=== PATIENT | male | born 1985 | race Caucasian/White ===

== ENCOUNTER → 2018-09-07 | Outpatient (CLI) | payer OTHER ==
[~2018-09-07] MED LIST: 0.9 % SODIUM CHLORIDE 10 ML DISP.SYRIN. ID ONE; CONTRAST GIVEN. MC PRN; GADOTERATE 7.5 MMOL/15ML VIAL. INT ART ONE; IOHEXOL 300 MG/ML 50 ML VIAL. INT ART ONE; LIDOCAINE 1% Multi-Dose 20 ML VIAL. ID ONE
--- NOTE | 2018-09-07 14:11 | KCIC ---
[facility] radiograph of the orbits 09/07/2018 CLINICAL HISTORY: Pre-MRI evaluation. History of metal exposure to the eyes. A [facility] digital radiograph of the skull was obtained. No radiopaque foreign body is seen involving either orbit. A probable 1.6 cm mucous retention cyst is seen within the inferior aspect of the right maxillary sinus. No fracture is seen. IMPRESSION: No radiopaque foreign body is seen involving either orbit. Electronically signed by: Carlos Middleton MD (09/07/2018 2:08 PM) [place] [id number]
--- NOTE | 2018-09-07 15:52 | KCIC ---
MRI arthrogram of the right shoulder HISTORY: Impingement syndrome, pain for 8 years. TECHNIQUE: Routine 4 plane sequences obtained after intra-articular contrast injection. FINDINGS: Acromioclavicular joint is degenerative with small undersurface osteophytes and mass effect. Partial-thickness undersurface tear of the anterior supraspinatus tendon, measures about two thirds deep and 1 cm AP diameter. No through and through full-thickness rupture. No significant subdeltoid bursal contrast accumulation, only trace subdeltoid bursal effusion. No evidence of acute articular cartilage defect. No labral tear or detachment. Biceps tendon is intact. No bone destruction or acute fracture. IMPRESSION: Small partial-thickness undersurface tear of the anterior supraspinatus tendon. No full-thickness rupture. Electronically signed by: Luis Gayle MD (09/07/2018 3:50 PM) [id number]
--- NOTE | 2018-09-07 17:25 | KCIC ---
PROCEDURE: Right shoulder injection using fluoroscopic guidance, prior to MR. HISTORY: Shoulder pain. TECHNIQUE: The procedure was explained to the patient as were potential risks, including among others infection, bleeding or allergic reaction. All questions were answered. Informed written and verbal consent was obtained. The shoulder was prepped and draped in the usual sterile manner. Following administration of local anesthetic, a 22-gauge needle was advanced into the anterior shoulder. Following negative aspiration, 12 cc of a solution of 5cc Omnipaque-300 contrast, 5 cc 1% lidocaine, 10 cc normal saline, and 0.1 cc gadolinium was injected without difficulty. The needle was removed. There was good hemostasis at the injection site. The patient left in stable condition without immediate complication. A single spot image is obtained. FLUOROSCOPY TIME:?18 seconds Electronically signed by: Luis Gayle MD (09/07/2018 5:23 PM) [id number]
== END | disposition home or self-care (01) ==
LOC: KCIC 13:23
PROVIDERS: ATTEND Orthopaedic Surgery
DX: M75.41 Impingement syndrome of right shoulder (principal); F17.200 Nicotine dependence, unspecified, uncomplicated; Z87.821 Personal history of retained foreign body fully removed
CPT/HCPCS: 70030; 73040; 73222; A9575; Q9967